=== PATIENT | female | born 2000 | race Two or more races ===

== ENCOUNTER 2023-06-25 16:52 | Emergency (ER) | payer OTHER ==
[2023-06-25 17:10] VITALS: BP 105/63; PULSE 102; RESP 18; TEMP 98; BMI 31.2
[2023-06-25] MEDS: SODIUM CHLORIDE 0.9% 500 ML INFUS.BAG IV ONE (18:16)
[2023-06-25 18:38] LABS: URINE APPEARANCE CLEAR; URINE BILIRUBIN NEGATIVE (NEGATIVE); URINE COLOR YELLOW; URINE GLUCOSE (UA) NEGATIVE (NEGATIVE); URINE KETONE 3+ (NEGATIVE); URINE LEUK ESTERASE NEGATIVE (NEGATIVE); URINE NITRITE NEGATIVE (NEGATIVE); URINE PROTEIN TRACE (NEGATIVE)
[2023-06-25 18:39] LABS: BASO % 0.2 % (0-2.0); EOS % 2.3 % (0-4.5); HEMATOCRIT 36.7 % (32.4-45.2); LYMPH % 13.4 % (8-40); MCH 29.3 pg (25.7-33.7); MCHC 35.4 g/dl (32.0-36.0); MEAN CELL VOLUME 82.8 fl (80-96); MEAN PLT VOLUME 9.2 fl (7.5-11.1); MONO % 8.6 % (3.8-10.2); NEUT % 75.5 % (42.8-82.8); PLATELET COUNT 189 10^3/uL (134-434); RBC 4.44 M/mm3 (3.60-5.2); RDW 13.5 % (11.6-15.6); WHITE BLOOD COUNT 12.7 K/mm3 (4.0-10.0)
[2023-06-25 19:09] LABS: POTASSIUM 3.6 mmol/L (3.5-5.1)
[2023-06-25 19:11] LABS: ALBUMIN 3.4 g/dl (3.4-5.0); BLOOD UREA NITROGEN 6.6 mg/dL (7-18)
[2023-06-25 19:14] LABS: CREATININE 0.5 mg/dL (0.55-1.3)
[2023-06-25 19:16] LABS: BILIRUBIN,TOTAL 0.2 mg/dL (0.2-1)
== END 2023-06-25 19:33 | disposition home or self-care (01) ==
LOC: JER 16:52
DX: O21.9 Vomiting of pregnancy, unspecified (principal); O99.891 Other specified diseases and conditions complicating pregnancy; R19.7 Diarrhea, unspecified; R05.9 Cough, unspecified; Z3A.14 14 weeks gestation of pregnancy; Z20.822 Contact with and (suspected) exposure to COVID-19
CPT/HCPCS: 0241U-QW; 36415; 76815; 80053; 81003; 85025; 87086; 99284-25

== ENCOUNTER 2023-12-17 08:16 | Inpatient (IN) | payer OTHER ==
[2023-12-17] MEDS: LACTATED RINGERS SOLUTION 1,000 ML/1,000 ML INFUS.BAG IV SCH (09:30)
[2023-12-17 09:56] VITALS: BMI 34.7
[2023-12-17] MEDS ORDERED: FENTANYL/BUPIVACAINE/NS/PF - PCEA - 50 ML DISP.SYRIN EP ONE ×2 (10:11→14:51)
[2023-12-17 10:20] LABS: HEMATOCRIT 36.2 % (32.4-45.2); HEMOGLOBIN 12.2 GM/dL (10.7-15.3); MCH 26.6 pg (25.7-33.7); MCHC 33.8 g/dl (32.0-36.0); MEAN CELL VOLUME 78.7 fl (80-96); MEAN PLT VOLUME 9.3 fl (7.5-11.1); PLATELET COUNT 212 10^3/uL (134-434); RBC 4.59 M/mm3 (3.60-5.2); RDW 14.6 % (11.6-15.6); WHITE BLOOD COUNT 24.2 K/mm3 (4.0-10.0)
[2023-12-17 10:27] LABS: INR 0.98 (0.83-1.09); PROTHROMBIN TIME (PATIENT) 11.3 SEC (9.7-13.0)
[2023-12-17 10:29] LABS: ACTIVATED PTT 32.1 SECONDS (25.2-36.5)
[2023-12-17] MEDS: FENTANYL/BUPIVACAINE/NS/PF - PCEA - 50 ML DISP.SYRIN EP SCH (10:30)
[2023-12-17 10:50] LABS: ANISOCYTOSIS 0; MACROCYTOSIS 0
[2023-12-17 11:41] LABS: POTASSIUM 3.9 mmol/L (3.5-5.1)
[2023-12-17 11:42] LABS: BLOOD UREA NITROGEN 7.2 mg/dL (7-18); CALCIUM 8.9 mg/dL (8.5-10.1)
[2023-12-17 11:46] LABS: CREATININE 0.5 mg/dL (0.55-1.3)
[2023-12-17] MEDS ORDERED: NALOXONE HCL 0.4 MG/ML VIAL IVPUSH PRN (12:12)
[2023-12-17 12:51] LABS: HIV INTERPRETATION NEGATIVE (NEGATIVE)
[2023-12-17] MEDS ORDERED: ACETAMINOPHEN INJECTION 100 ML ONE (16:24)
[2023-12-17] MEDS: ACETAMINOPHEN 1000 MG/100 ML BAG IVPB ONE (16:35)
[2023-12-17] MEDS ORDERED: LIDOCAINE HCL 1% PRESERVATIVE FREE - 30ML VIAL ONE (16:46)
[2023-12-17] MEDS ORDERED: OXYTOCIN 20 UNITS in 0.9% NS 20 UNIT/1,000 ML INFUS.BAG IV ONE ×2 (16:46→20:08)
[2023-12-17] MEDS ORDERED: OXYTOCIN 10 UNITS/ML VIAL ONE (17:06)
[2023-12-17] MEDS ORDERED: BENZOCAINE 20% 57 GM BOTTLE TP PRN (18:06)
[2023-12-17] MEDS ORDERED: METHYLERGONOVINE MALEATE 0.2 MG/1 ML AMP IM PRN (18:06)
[2023-12-17] MEDS ORDERED: oxyCODONE HCL 5 MG TABLET PO PRN (18:06)
[2023-12-17] MEDS ORDERED: BISACODYL 10 MG SUPP.RECT RC PRN (18:06)
[2023-12-17] MEDS ORDERED: BENZOCAINE 28 GM HEMORRHOIDAL OINTMENT TP PRN (18:06)
[2023-12-17] MEDS ORDERED: WITCH HAZEL 50% (TUCKS) 40 PAD/JAR PAD TP PRN (18:06)
[2023-12-17] MEDS: OXYTOCIN 20 UNITS in 0.9% NS 20 UNIT/1,000 ML INFUS.BAG IV SCH (20:15)
[2023-12-17 22:33] VITALS: RESP 18
[2023-12-18] MEDS: ACETAMINOPHEN 325 MG TABLET (FP) PO PRN (03:37)
[2023-12-18 07:44] LABS: HEMATOCRIT 31.7 % (32.4-45.2); HEMOGLOBIN 10.7 GM/dL (10.7-15.3); MCH 26.6 pg (25.7-33.7); MCHC 33.6 g/dl (32.0-36.0); MEAN PLT VOLUME 8.9 fl (7.5-11.1); PLATELET COUNT 197 10^3/uL (134-434); RBC 4.01 M/mm3 (3.60-5.2); RDW 14.8 % (11.6-15.6); WHITE BLOOD COUNT 25.5 K/mm3 (4.0-10.0)
[2023-12-18 08:52] LABS: ANISOCYTOSIS 0; MACROCYTOSIS 0
[2023-12-18] MEDS: PRENATAL VITAMINS W/ FOLIC ACID TABLET (FP) PO SCH (10:15)
[2023-12-18] MEDS: IBUPROFEN 600 MG TABLET (FP) PO PRN (17:23)
[2023-12-18] MEDS ORDERED: SENNOSIDES/DOCUSATE COMBO (SENNA PLUS) TABLET (UD) PO PRN (22:00)
[2023-12-19 10:13] VITALS: BP 105/78; PULSE 103; TEMP 97.4
== END 2023-12-19 15:40 | disposition home or self-care (01) | DRG 807 ==
LOC: JDEL 08:16 → JLDR 09:00 → J3W 20:44
PROVIDERS: ADMIT Obstetrics & Gynecology; ATTEND Obstetrics & Gynecology
PROC: 10E0XZZ Delivery of Products of Conception, External Approach (ICD-10-PCS; principal; 2023-12-17)
PROC: 0HQ9XZZ Repair Perineum Skin, External Approach (ICD-10-PCS; 2023-12-17)
PROC: 0W8NXZZ Division of Female Perineum, External Approach (ICD-10-PCS; 2023-12-17)
DX: O36.5930 Maternal care for other known or suspected poor fetal growth, third trimester, not applicable or unspecified (principal); Z37.0 Single live birth; O99.284 Endocrine, nutritional and metabolic diseases complicating childbirth; O99.214 Obesity complicating childbirth; O70.0 First degree perineal laceration during delivery; Z3A.39 39 weeks gestation of pregnancy
CPT/HCPCS: 36415; 59025; 59409; 80048; 85025; 85610; 85730; 86780; 86850; 86900; 86901; 87389; J0131